=== PATIENT | female | born 1955 | race Caucasian/White ===

== ENCOUNTER 2016-09-23 09:17 | Emergency (ER) | payer BC, MEDICARE ==
[~2016-09-23] VITALS: Ht 165.1 cm; Wt 90.7 kg
[~2016-09-23 09:17] MED LIST: ASPI-482 PO; CRESTOR20 MG PO; FISH1CAP PO; HYDR-2762 PO; LISI1TAB5 PO; METO25TA9 PO; TIZA4TAB PO; VENTOLIN HFA18 GM INH
[2016-09-23] MEDS ORDERED: IPRATRPIUM/ALBUTEROL 0.5/2.5MG 3 ML NEBU. NEB ONE (09:45)
[2016-09-23] MEDS ORDERED: predniSONE 10 MG TABLET PO ONE (09:45)
[2016-09-23 10:00] VITALS: BP 163/100
--- NOTE | 2016-09-23 10:07 | RAD ---
Chest, 2 views, 09/23/2016: History: Chest pain, coronary artery disease Comparison is made to a study from 04/06/2014. The heart size and pulmonary vascularity are normal. No pulmonary infiltrates are seen. There is no evidence of pleural fluid. Mild spurring is present in the spine. IMPRESSION: No acute cardiopulmonary abnormality is detected.
[2016-09-23] MEDS ORDERED: PRED50TA PO (10:14)
[2016-09-23] MEDS ORDERED: PROAIR HFA8.5 GM INH (10:14)
--- NOTE | 2016-09-23 10:14 | PHYS DOC ---
Past Medical History Past Medical History: COPD, Hypertension, Hypothyroid, Kidney Stone, [place], Other Additional Past Medical Histor: hyperlipidemia Past Surgical History: Cholecystectomy, Tonsillectomy, Tubal ligation Additional Past Surgical Histo: cardiac stents, " esophagus stretched" Alcohol Use: None Drug Use: Marijuana Adult General Chief Complaint Chief Complaint: SHORTNESS OF BREATH HPI HPI Patient is a 61 year old female with COPD who presents with 4 days of rhinorrhea, chills, increased cough with white sputum, and dyspnea. States she does not have an inhaler for COPD as she cannot afford it. She denies measured fever, sore throat, chest pain, hemoptysis, leg pain or swelling, orthopnea, nausea or vomiting, abdominal pain, diarrhea, dysuria. Review of Systems Review of Systems Constitutional: Denies measured fever [] Eyes: Denies change in visual acuity, redness, or eye pain [] HENT: Denies nasal congestion or sore throat [] Respiratory: Has cough and shortness of breath [] Cardiovascular: No additional information not addressed in HPI [] GI: Denies abdominal pain, nausea, vomiting, bloody stools or diarrhea [] : Denies dysuria or hematuria [] Musculoskeletal: Denies back pain or joint pain [] Integument: Denies rash or skin lesions [] Neurologic: Denies headache, focal weakness or sensory changes [] Endocrine: Denies polyuria or polydipsia [] Current Medications Current Medications Current Medications Medications (Trade) Dose Ordered Sig/Sameer Start Time Stop Time Status Last Admin Dose Admin Albuterol/ Ipratropium (Duoneb) 3 ml 1X ONCE 09/23/16 09:45 09/23/16 09:46 DC 09/23/16 09:42 3 ML Ondansetron HCl (Zofran Odt) 4 mg 1X ONCE 09/23/16 10:15 09/23/16 10:16 DC 09/23/16 10:04 4 MG Prednisone (Prednisone) 50 mg 1X ONCE 09/23/16 09:45 09/23/16 09:46 DC 09/23/16 09:47 50 MG Allergies Allergies Allergies Coded Allergies Type Severity Reaction Last Updated Verified iodine Allergy Severe rash,SOB 09/23/16 Yes Physical Exam Physical Exam Constitutional: Well developed, well nourished, no acute distress, non-toxic appearance. [] HENT: Normocephalic, atraumatic, bilateral external ears normal, oropharynx moist, no oral exudates, nose normal. [] Eyes: PERRLA, EOMI. [] Neck: Normal range of motion, supple, no stridor. [] Cardiovascular:Heart rate regular rhythm [] Lungs & Thorax: Bilateral wheezing, normal respiratory effort, speaking in full sinus, no crackles [] Abdomen: Bowel sounds normal, soft, no tenderness. [] Skin: Warm, dry, no erythema, no rash. [] Back: Normal range of motion. [] Extremities: No tenderness, ROM intact, no edema. [] Neurologic: Alert and oriented X 3, normal motor function, normal sensory function, no focal deficits noted. [] Psychologic: Affect normal, judgement normal, mood normal. [] Current Patient Data Vital Signs Vital Signs Date Time Temp Pulse Resp B/P (MAP) Pulse Ox O2 Delivery O2 Flow Rate FiO2 09/23/16 10:00 88 24 163/100 (121) 95 Room Air 09/23/16 09:35 97.9 97.9 Radiology/Procedures Radiology/Procedures Chest xray as interpreted by me with no acute cardiopulmonary disease process Course & Med Decision Making Course & Med Decision Making Pertinent Labs and Imaging studies reviewed. (See chart for details) She feels much better after neb here. Encouraged her to fill prescriptions and follow-up with her primary care doctor. Return precautions given. She understands and agrees with plan. Dragon Disclaimer Dragon Disclaimer This electronic medical record was generated, in whole or in part, using a voice recognition dictation system. Departure Departure Impression: Primary Impression: COPD exacerbation Disposition: 01 HOME, SELF-CARE Condition: STABLE Referrals: EPHRAIM FISHER MD (PCP) Patient Instructions: Chronic Obstructive Pulmonary Disease Exacerbation, Easy- to-Read Additional Instructions: Use albuterol inhaler as needed for difficulty breathing. Take prednisone as prescribed. Follow-up with your primary care doctor within one week. Return for any concerns. Scripts Prednisone (PREDNISONE) 50 Mg Tablet 1 TAB PO DAILY, #4 TAB Prov: Oscar OBREGON MD 09/23/16 Albuterol Sulfate (PROAIR HFA INHALER) 8.5 Gm Hfa.aer.ad 2 PUFF INH Q4HRS Y for SHORTNESS OF BREATH, #1 INHALER 0 Refills Prov: Oscar OBREGON MD 09/23/16 Oscar OBREGON MD Sep 23, 2016 10:14
[2016-09-23] MEDS ORDERED: ONDANSETRON ODT 4 MG TAB.RAPDIS. PO ONE (10:15)
== END 2016-09-23 10:24 | disposition home or self-care (01) ==
LOC: ER 09:17
DX: J44.1 Chronic obstructive pulmonary disease with (acute) exacerbation (principal); I10 Essential (primary) hypertension; E03.9 Hypothyroidism, unspecified; I25.2 Old myocardial infarction; E78.5 Hyperlipidemia, unspecified; F12.10 Cannabis abuse, uncomplicated; Z95.5 Presence of coronary angioplasty implant and graft; Z87.442 Personal history of urinary calculi; Z90.49 Acquired absence of other specified parts of digestive tract; Z90.89 Acquired absence of other organs; Z98.51 Tubal ligation status; Z88.8 Allergy status to other drugs, medicaments and biological substances
CPT/HCPCS: 71020; 94250; 94640; 99284; J7512; J7620; Q0162

== ENCOUNTER → 2017-08-13 | Outpatient (CLI) | payer BC | END | disposition home or self-care (01) | LOC: CT 15:25 | DX: N20.0 Calculus of kidney (principal); M51.37 Other intervertebral disc degeneration, lumbosacral region; K57.30 Diverticulosis of large intestine without perforation or abscess without bleeding; I25.10 Atherosclerotic heart disease of native coronary artery without angina pectoris; M43.17 Spondylolisthesis, lumbosacral region; R91.8 Other nonspecific abnormal finding of lung field; Z90.49 Acquired absence of other specified parts of digestive tract | CPT/HCPCS: 74176 ==

== ENCOUNTER → 2017-09-19 | Outpatient (CLI) | payer BC | END | disposition home or self-care (01) | LOC: KCIC CT 09:01 | DX: J44.9 Chronic obstructive pulmonary disease, unspecified (principal); I70.0 Atherosclerosis of aorta; M25.78 Osteophyte, vertebrae; Z87.891 Personal history of nicotine dependence | CPT/HCPCS: 71250 ==

== ENCOUNTER → 2018-12-24 | Outpatient (CLI) | payer BC, MEDICARE ==
[2018-06-05 11:05] VITALS: BP 147/93
[~2018-12-24] MED LIST changes: +ALBU2.5V8 INH; +ASPI325T11 PO; +ATOR10TA60 PO; +CLOT10TR MM; +FLAX1CAP PO; -HYDR-2762 PO; +HYDR-2765 PO; +LEVO500T59 PO; +LISI1TAB19 PO; -LISI1TAB5 PO; +METO-239 PO; -METO25TA9 PO; +PRAS10TA9 PO; +PRED-220 PO; +PRED50TA PO; -TIZA4TAB PO; +TIZA4TAB2 PO; +guaiFENesin/CODEINE 100mg/10mg PO
--- NOTE | 2018-12-24 16:45 | RAD ---
MR#: [id number] Date of Study: 12/24/2018 Ordering Physician: CLAIRE TUTTLE, Referring Physician: CLAIRE TUTTLE Tech: Cydney Miles RVT, CAMMY APPROVED REPORT Patient Location: OUT-PATIENT Indications Claudication: PAD Risk Factors Hypertension Hyperlipidemia Cardiac Disease Smoking VELOCITY AND DOPPLER WAVEFORM ANALYSIS RIGHT cm/secWaveformSeverity LEFT cm/secWaveform Severity pCFA 108.2TriphasicpCFA 83.9Triphasic Prof Fem Art. 52.3BiphasicProf Fem Art. 46.8Biphasic Fem Art Prox. 96.4TriphasicFem Art Prox. 59.0Triphasic Fem Art Mid. 81.6TriphasicFem Art Mid. 93.3Triphasic Fem Art Dist. 63.6TriphasicFem Art Dist. 93.2Triphasic Pop Art(Fossa) 58.3TriphasicPop Art(AK) 69.4Biphasic CLOTH PRESSER Prox. 51.8BiphasicPTA Prox. 55.5Triphasic CLOTH PRESSER Dist. 63.9TriphasicPTA Dist. 44.8Triphasic Per Art Dist.33.8BiphasicPer Art Dist.25.2Biphasic SENAIT Prox. SENAIT Prox. 53.3Biphasic SENAIT Dist. 49.5ATA Dist. DPA 50BiphasicDPA 31Biphasic Findings Grayscale images of the bilateral lower extremity arterial vessels reveals diffuse moderate calcific plaque. There are mostly triphasic and biphasic waveforms throughout the arterial course. Bilateral p eroneal arteries demonstrate diminished velocities. Otherwise no focal high-grade stenosis is identif ied. Critical Notification Critical Value: No <Conclusion> 1. Likely moderate diffuse disease without any evidence of focal high-grade stenosis Signed by : Robinson Muñoz, Electronically Approved : 12/24/2018 16:44:47
== END | disposition home or self-care (01) ==
LOC: US 15:37
PROVIDERS: ATTEND Internal Medicine Cardiovascular Disease
DX: I70.203 Unspecified atherosclerosis of native arteries of extremities, bilateral legs (principal)
CPT/HCPCS: 93925

== ENCOUNTER → 2019-02-22 | Outpatient (CLI) | payer BC ==
[2018-06-05 11:05] VITALS: BP 147/93
[~2019-02-22] MED LIST changes: +REGADENOSON 0.4 MG/5 ML DISP.SYRIN. IV ONE
--- NOTE | 2019-02-22 08:57 | CARD ---
MR#: [id number] Date of Study: 02/22/2019 Ordering Physician: CLAIRE TUTTLE, Referring Physician: CLAIRE TUTTLE Tech: Zhanna Pantoja RDCS APPROVED REPORT EXAM: Two-dimensional and M-mode echocardiogram with Doppler and color Doppler. Other Information Quality : Technically LimitedHR: 105bpm Rhythm : TachycardiaTechnically limited study due to body habitus and smoking. INDICATION CAD 2D DIMENSIONS RVDd2.4 (2.9-3.5cm)Left Atrium(2D)3.1 (1.6-4.0cm) IVSd1.5 (0.7-1.1cm)Aortic Root(2D)2.7 (2.0-3.7cm) LVDd3.9 (3.9-5.9cm)LVOT Diameter1.9 (1.8-2.4cm) PWd1.2 (0.7-1.1cm)LVDs2.6 (2.5-4.0cm) FS (%) 34.0 %SV42.5 ml LVEF(%)63.6 (>50%) M-Mode DIMENSIONS Left Atrium(MM)2.94 (2.5-4.0cm)Aortic Root1.87 (2.2-3.7cm) Aortic Valve AoV Peak Wali.138.4cm/sAoV VTI20.0cm AO Peak GR.7.7mmHgLVOT Peak Wali.122.2cm/s AO Mean GR.4mmHgAVA (VMAX)2.62cm2 AKANKSHA (VTI)2.60cm2 Mitral Valve MV E Vfqgskjg36.8cm/sMV DECEL VKRV04aw MV A Ncgqhozs054.6cm/sE/A Ratio0.3 Pulmonary Valve PV Peak Dppwkkem23.0cm/s LEFT VENTRICLE The left ventricle is normal size. There is mild to moderate concentric left ventricular hypertrophy. The left ventricular systolic function is normal and the ejection fraction is within normal range. T he Ejection Fraction is 65-70%. There is normal LV segmental wall motion. Transmitral Doppler flow pa ttern is Grade I-abnormal relaxation pattern. RIGHT VENTRICLE The right ventricle is normal size. The right ventricle is mildly hypertrophied. The right ventricula r systolic function is normal. ATRIA The left atrium size is normal. The right atrium size is normal. The interatrial septum is intact wit h no evidence for an atrial septal defect or patent foramen ovale as noted on 2-D or Doppler imaging. AORTIC VALVE The aortic valve is not well visualized. The aortic valve is probably trileaflet. Doppler and Color F low revealed no significant aortic regurgitation. There is no significant aortic valvular stenosis. MITRAL VALVE The mitral valve is normal in structure and function. There is no evidence of mitral valve prolapse. There is no mitral valve stenosis. Doppler and Color Flow revealed no mitral valve regurgitation note d. TRICUSPID VALVE The tricuspid valve is normal in structure and function. Doppler and Color Flow revealed no tricuspid valve regurgitation noted. There is no tricuspid valve prolapse or vegetation. There is no tricuspid valve stenosis. PULMONIC VALVE The pulmonic valve is not well visualized. GREAT VESSELS The aortic root is normal in size. The ascending aorta is normal in size. The IVC is normal in size a nd collapses >50% with inspiration. PERICARDIAL EFFUSION There is no evidence of significant pericardial effusion. The pericardium is mildly hypertrophied/thi ckened Critical Notification Critical Value: No <Conclusion> There is mild to moderate concentric left ventricular hypertrophy. The left ventricular systolic function is normal and the ejection fraction is within normal range. Th e Ejection Fraction is 65-70%. There is normal LV segmental wall motion. The right ventricle is mildly hypertrophied. There is no evidence of significant pericardial effusion. The pericardium is mildly hypertrophied/thi ckened Signed by : Robinson Muñoz, Electronically Approved : 02/22/2019 08:56:56
--- NOTE | 2019-02-22 11:31 | RAD ---
MR#: [id number] Date of Study: 02/22/2019 Ordering Physician: CLAIRE TUTTLE Referring Physician: FREDERIC BARKER Tech: RT Annalisa Carrillo) (N) APPROVED REPORT Test Type: Pharmacological Stress Nurse/Tech: Marina Swan RN Test Indications: CAD Cardiac History: Hypertension, High cholesterol, [place] 05/2018 Medications: See Electronic Medical Record Medical History: See Electronic Medical Record Resting ECG: Sinus Rhythm Resting Heart Rate: 83 bpm Resting Blood Pressure: 119/63mmHg Pretest Chest Pain: No chest pain Nurse/Tech Notes S1S2, Lungs CTA Consent: The procedure was explained to the patient in lay terms. Informed consent was witnessed. Mehran eout was entered into [employer]. History and Stress Test performed by RT Annalisa Peralta) (N) Pharm. Details Pharmacologic stress testing was performed using 0.4mg per 5ml of regadenoson given intravenously ove r 7-10 seconds. Stress Symptoms Flushing, Dyspnea, Nausea, Vomiting, Chest pain 8/10. POST EXERCISE Reason for Termination: Infusion complete Max HR: 139 bpm Max Blood Pressure: 181/86mmHg Blood Pressure response to exercise: Normal blood pressure response during stress. Heart Rate response to exercise: Normal Chest Pain: Yes. 8/10 at 1min, resolved by the end of test. Arrhythmia: No. ST Change: No. INTERPRETATION Stress EKG Conclusion: Baseline EKG showed sinus rhythm with LVH and repolarization abnormality. Non -diagnostic changes at peak stress. No arrhythmias. Imaging Protocol IMAGE PROTOCOL: Rest Tc-99m/stress Tc-99m 1 day Rest: Stress: Viability: Radiopharm.Tc99m OdnrarbpbQo75r Sestamibi Akkv05nUr 32.3mCi Duration 13min. 13min. Img Date 02/22/2019 02/22/2019 Inj-Img [id number]. 60min. Rest Admin Site:IV - Left HandAdministrator:RT Annalisa Carrillo)(N) Stress Admin Site: IV - Left HandAdministrator: RT Annalisa Peralta)(N) STRESS DATA End Diast. Vol.44.0mlAv. Heart Owah961.0bpm LVEDV index BSA22.0mlCardiac Output0.0L/min End Syst. Vol.12.0mlCO Index BSA0.0L/min LVESV index BSA6.0mlMyocardial Mass79.0g Eject. Mqlxbngu76.0% Stress Scores Regional WT2.00Summed WT30.00 Regional WM0.00Summed WM5.00 Study quality was good. Left Ventricular size was Normal at Rest and Stress. Lung uptake was . Left Ventricular ejection fraction is 73%. The rest and stress images show normal perfusion, normal contraction and thickening. LV Perf. Quant 17 Seg. SSS0.00 17 Seg. SRS4.00 17 Seg. SDS0.00 Stress Defect Extent (% LAD)0.00Rest Defect Extent (% LAD)10.60Rev. Defect Extent (% LAD)0.00 Stress Defect Extent (% LCX) 0.00Rest Defect Extent (% LCX)0.00Rev. Defect Extent (% LCX)0.00 Stress Defect Extent (% RCA)0.00Rest Defect Extent (% RCA)0.00Rev. Defect Extent (% RCA)0.00 Stress Defect Extent (% JANKI)0.00Rest Defect Extent (% JANKI)3.90Rev. Defect Extent (% JANKI)0.00 Conclusion 1. Regadenoson cardioisotope stress test did not show any evidence of ischemia or infarct. 2. Normal left ventricular systolic function with ejection fraction calculated at 73%. 3. Low risk for cardiac events. Signed by : Claire Tuttle, Electronically Approved : 02/22/2019 11:30:23
== END | disposition home or self-care (01) ==
LOC: NM 07:58
PROVIDERS: ATTEND Internal Medicine Cardiovascular Disease
DX: I25.10 Atherosclerotic heart disease of native coronary artery without angina pectoris (principal); E11.9 Type 2 diabetes mellitus without complications; I11.0 Hypertensive heart disease with heart failure; J44.9 Chronic obstructive pulmonary disease, unspecified; I25.2 Old myocardial infarction; E78.00 Pure hypercholesterolemia, unspecified
CPT/HCPCS: 78452; 93017; 93306; A9500; J2785